=== PATIENT | female | born 1955 | race Two or more races ===

== ENCOUNTER 2018-05-26 20:14 | Emergency (ER) | payer OTHER ==
[~2018-05-26] VITALS: Ht 170.2 cm; Wt 62.1 kg
--- NOTE | 2018-05-26 20:25 | NUR ---
PT BIBRA FROM PLAYING TENNIS C/O 6 INCH LACERATION ON LEFT FOREHEAD S/P GLF. -KO, -N/V. PT AOX4. RESP EVEN AND UNLABORED. NAD NOTED. PT IN BED 5. WILL CONTINUE TO MONITOR.
--- NOTE | 2018-05-26 20:40 | NUR ---
TECH AT BEDSIDE FOR WOUND CARE
[2018-05-26] MEDS ORDERED: LIDOCAINE 1%-EPI 1:100,000 20 ML VIAL ONE (20:49)
[2018-05-26] MEDS ORDERED: TDAP [DIPH/PERTUSSIS/TET] 0.5 ML VIAL IM ONE ×2 (21:00→21:41)
[2018-05-26] MEDS ORDERED: LIDOCAINE 2%-EPI 1:100,000 30 ML VIAL TP ONE (21:00)
[2018-05-26] MEDS ORDERED: IV NS 0.9% 1,000 ML BAG IV ONE (21:00)
--- NOTE | 2018-05-26 21:10 | NUR ---
VALDEMAR AUGUSTIN AT BEDSIDE
--- NOTE | 2018-05-26 21:53 | NUR ---
PT TAKEN TO CT VIA SPENSER
[2018-05-27 00:01] VITALS: BP 126/78
--- NOTE | 2018-05-27 00:19 | NUR ---
Patient discharged to home in stable condition. Written and verbal after care instructions given. Patient verbalizes understanding of instruction. PT AMBULATORY WITH STEADY GAIT.
== END 2018-05-27 00:22 | disposition home or self-care (01) ==
LOC: ER 20:16
DX: S01.01XA Laceration without foreign body of scalp, initial encounter (principal); E78.00 Pure hypercholesterolemia, unspecified; I10 Essential (primary) hypertension; W01.0XXA Fall on same level from slipping, tripping and stumbling without subsequent striking against object, initial encounter; Y93.69 Activity, other involving other sports and athletics played as a team or group; Y92.89 Other specified places as the place of occurrence of the external cause; Y99.8 Other external cause status
CPT/HCPCS: 70450-TC; 90715; A6403; J3490; J7030